=== PATIENT | male | born 1990 | race American Indian/Alaskan Native ===

== ENCOUNTER 2017-05-24 22:20 | Emergency (ER) | payer OTHER ==
[2017-05-24 23:59] LABS: Basophils % (Auto) 0.7 % (0.0-1.8); Eosinophils % (Auto) 3.6 % (0.0-4.3); Hematocrit 44.9 % (35.5-45.6); Mean Corpuscular HGB Conc 34 % (32-34); Mean Corpuscular Hemoglobin 31 pg (28-32); Mean Corpuscular Volume 91 fl (84-94); Platelet Count 210 K/mm3 (140-440); Red Blood Count 4.94 M/mm3 (3.65-5.03); Red Cell Distribution Width 13.6 % (13.2-15.2); White Blood Count 6.1 K/mm3 (4.5-11.0)
[2017-05-25 00:26] LABS: Anion Gap 19 mmol/L; Blood Urea Nitrogen 11 mg/dL (9-20); Calcium 9.5 mg/dL (8.4-10.2); Carbon Dioxide 24 mmol/L (22-30); Chloride 100.7 mmol/L (98-107); Glucose 82 mg/dL (75-100); Potassium 3.5 mmol/L (3.6-5.0); Sodium 140 mmol/L (137-145)
[2017-05-25 01:14] LABS: Bilirubin,Urine NEG (Negative); Blood,Urine NEG (Negative); Ketones,Urine NEG (Negative); Leukocyte Esterase,Urine NEG (Negative); Nitrite,Urine NEG (Negative); Protein,Urine <15 mg/dL mg/dL (Negative); RBC,Urine < 1.0 /HPF (0.0-6.0); Urobilinogen,Urine < 2.0 mg/dL (<2.0)
--- NOTE | 2017-05-25 10:22 | Emergency Department Report ---
ED Chest Pain HPI - General Chief Complaint: Chest Pain Stated Complaint: GENERAL WEAKNESS Time Seen by Provider: 05/25/17 10:20 Source: patient Mode of arrival: Ambulatory Limitations: No Limitations - History of Present Illness Severity scale (0 -10): 10 - Related Data Previous Rx's Medication Instructions Recorded Last Taken Type Diclofenac Sodium 75 mg PO BID #20 tablet. 02/19/16 Unknown Rx Prednisone [predniSONE 10 mg 10 mg PO .TAPER #1 tab.ds.pk 02/19/16 Unknown Rx (6-Day Pack, 21 Tabs)] Allergies Allergy/AdvReac Type Severity Reaction Status Date / Time No Known Allergies Allergy Verified 05/24/17 22:51 ED Review of Systems ROS: Stated complaint: GENERAL WEAKNESS Other details as noted in HPI ED Past Medical Hx - Past Medical History Previous Medical History?: No - Surgical History Past Surgical History?: No - Social History Smoking Status: Never Smoker Substance Use Type: None - Medications Home Medications: Home Medications Medication Instructions Recorded Confirmed Last Taken Type Diclofenac Sodium 75 mg PO BID #20 tablet. 02/19/16 Unknown Rx Prednisone [predniSONE 10 mg 10 mg PO .TAPER #1 tab.ds.pk 02/19/16 Unknown Rx (6-Day Pack, 21 Tabs)] ED Physical Exam - General Limitations: No Limitations ED Course Vital Signs 05/24/17 05/25/17 05/25/17 22:51 01:22 08:01 Temperature 97.8 F 98.8 F Pulse Rate 60 52 L Respiratory 16 18 18 Rate Blood Pressure 130/92 135/86 Blood Pressure [Left] O2 Sat by Pulse 100 100 Oximetry 05/25/17 08:11 Temperature 98.7 F Pulse Rate 50 L Respiratory 18 Rate Blood Pressure Blood Pressure 133/76 [Left] O2 Sat by Pulse 98 Oximetry ED Medical Decision Making - Lab Data Result diagrams: 05/24/17 23:26 05/24/17 23:26 Laboratory Results - last 24 hr 05/24/17 05/24/17 05/24/17 00:36 23:26 23:26 WBC 6.1 RBC 4.94 Hgb 15.0 Hct 44.9 MCV 91 MCH 31 MCHC 34 RDW 13.6 Plt Count 210 Lymph % (Auto) 51.4 H [place] % (Auto) 8.3 H Eos % (Auto) 3.6 Baso % (Auto) 0.7 Lymph # 3.1 [place] # 0.5 Eos # 0.2 Baso # 0.0 Seg Neutrophils % 36.0 L Seg Neutrophils # 2.2 Sodium 140 Potassium 3.5 L Chloride 100.7 Carbon Dioxide 24 Anion Gap 19 BUN 11 Creatinine 1.0 Estimated GFR > 60 BUN/Creatinine Ratio 11.00 Glucose 82 Calcium 9.5 Troponin T < 0.010 Urine Color Yellow Urine Turbidity Clear Urine pH 7.0 Ur Specific [place] 1.014 Urine Protein <15 mg/dl Urine Glucose (UA) Neg Urine Ketones Neg Urine Blood Neg Urine Nitrite Neg Urine Bilirubin Neg Urine Urobilinogen < 2.0 Ur Leukocyte Esterase Neg Urine WBC (Auto) 0.0 Urine RBC (Auto) < 1.0 05/25/17 05/25/17 01:44 04:55 WBC RBC Hgb Hct MCV MCH MCHC RDW Plt Count Lymph % (Auto) [place] % (Auto) Eos % (Auto) Baso % (Auto) Lymph # [place] # Eos # Baso # Seg Neutrophils % Seg Neutrophils # Sodium Potassium Chloride Carbon Dioxide Anion Gap BUN Creatinine Estimated GFR BUN/Creatinine Ratio Glucose Calcium Troponin T < 0.010 < 0.010 Urine Color Urine Turbidity Urine pH Ur Specific [place] Urine Protein Urine Glucose (UA) Urine Ketones Urine Blood Urine Nitrite Urine Bilirubin Urine Urobilinogen Ur Leukocyte Esterase Urine WBC (Auto) Urine RBC (Auto) Critical care attestation.: If time is entered above; I have spent that time in minutes in the direct care of this critically ill patient, excluding procedure time. ED Disposition Condition: Stable Referrals: PRIMARY CARE, [Primary Care Provider] - 3-5 Days
[2017-05-25] MEDS ORDERED: TORADOL IM ONE (11:12)
--- NOTE | 2017-05-25 11:12 | Emergency Department Report ---
ED General Adult HPI - General Chief complaint: Chest Pain Stated complaint: GENERAL WEAKNESS Time Seen by Provider: 05/25/17 10:20 Source: patient Mode of arrival: Ambulatory Limitations: No Limitations - History of Present Illness Initial comments: The patient does not actually complain of chest pain at all. He states that he essentially has allodynia, that is, pain all over. He states he's had this problem for 2 weeks. He states he went to another emergency department and also told him that he was having abdominal pain. A workup at that time was totally normal. He states he has not wanted to see an physician office rep on . He essentially just states he is hurting all over. He does not specify. His muscle or joint pain. He hasn't seen any swollen areas. He hasn't measured his temperature nor suffered from chills. His review of systems is otherwise negative. He is a poor historian. He does admit that he does have problems with chronic pain for at least the last 2 weeks. He's had no recent traveling. -: week(s) Location: upper extremity, lower extremity Quality: aching Consistency: intermittent Improves with: none Worsens with: none Associated Symptoms: denies other symptoms Treatments Prior to Arrival: none - Related Data Previous Rx's Medication Instructions Recorded Last Taken Type Diclofenac Sodium 75 mg PO BID #20 tablet. 02/19/16 Unknown Rx Prednisone [predniSONE 10 mg 10 mg PO .TAPER #1 tab.ds.pk 02/19/16 Unknown Rx (6-Day Pack, 21 Tabs)] traMADol [Ultram] 50 mg PO Q6HR PRN #14 tablet 05/25/17 Unknown Rx Allergies Allergy/AdvReac Type Severity Reaction Status Date / Time No Known Allergies Allergy Verified 05/24/17 22:51 ED Review of Systems ROS: Stated complaint: GENERAL WEAKNESS Other details as noted in HPI Constitutional: denies: chills, fever Eyes: denies: eye pain, eye discharge, vision change ENT: denies: ear pain, throat pain Respiratory: denies: cough, shortness of breath, wheezing Cardiovascular: denies: chest pain, palpitations Endocrine: no symptoms reported Gastrointestinal: denies: abdominal pain, nausea, diarrhea Genitourinary: denies: urgency, dysuria Musculoskeletal: as per HPI Skin: denies: rash, lesions Neurological: denies: headache, weakness, paresthesias Psychiatric: denies: anxiety, depression Hematological/Lymphatic: denies: easy bleeding, easy bruising ED Past Medical Hx - Past Medical History Previous Medical History?: No - Surgical History Past Surgical History?: No - Social History Smoking Status: Never Smoker Substance Use Type: None - Medications Home Medications: Home Medications Medication Instructions Recorded Confirmed Last Taken Type Diclofenac Sodium 75 mg PO BID #20 tablet. 02/19/16 Unknown Rx Prednisone [predniSONE 10 mg 10 mg PO .TAPER #1 tab.ds.pk 02/19/16 Unknown Rx (6-Day Pack, 21 Tabs)] traMADol [Ultram] 50 mg PO Q6HR PRN #14 tablet 05/25/17 Unknown Rx ED Physical Exam - General Limitations: No Limitations ED Course Vital Signs 05/24/17 05/25/17 05/25/17 22:51 01:22 08:01 Temperature 97.8 F 98.8 F Pulse Rate 60 52 L Respiratory 16 18 18 Rate Blood Pressure 130/92 135/86 Blood Pressure [Left] O2 Sat by Pulse 100 100 Oximetry 05/25/17 08:11 Temperature 98.7 F Pulse Rate 50 L Respiratory 18 Rate Blood Pressure Blood Pressure 133/76 [Left] O2 Sat by Pulse 98 Oximetry ED Medical Decision Making - Lab Data Result diagrams: 05/24/17 23:26 05/24/17 23:26 Laboratory Results - last 24 hr 05/24/17 05/24/17 05/24/17 00:36 23:26 23:26 WBC 6.1 RBC 4.94 Hgb 15.0 Hct 44.9 MCV 91 MCH 31 MCHC 34 RDW 13.6 Plt Count 210 Lymph % (Auto) 51.4 H [place] % (Auto) 8.3 H Eos % (Auto) 3.6 Baso % (Auto) 0.7 Lymph # 3.1 [place] # 0.5 Eos # 0.2 Baso # 0.0 Seg Neutrophils % 36.0 L Seg Neutrophils # 2.2 Sodium 140 Potassium 3.5 L Chloride 100.7 Carbon Dioxide 24 Anion Gap 19 BUN 11 Creatinine 1.0 Estimated GFR > 60 BUN/Creatinine Ratio 11.00 Glucose 82 Calcium 9.5 Troponin T < 0.010 Urine Color Yellow Urine Turbidity Clear Urine pH 7.0 Ur Specific [place] 1.014 Urine Protein <15 mg/dl Urine Glucose (UA) Neg Urine Ketones Neg Urine Blood Neg Urine Nitrite Neg Urine Bilirubin Neg Urine Urobilinogen < 2.0 Ur Leukocyte Esterase Neg Urine WBC (Auto) 0.0 Urine RBC (Auto) < 1.0 05/25/17 05/25/17 01:44 04:55 WBC RBC Hgb Hct MCV MCH MCHC RDW Plt Count Lymph % (Auto) [place] % (Auto) Eos % (Auto) Baso % (Auto) Lymph # [place] # Eos # Baso # Seg Neutrophils % Seg Neutrophils # Sodium Potassium Chloride Carbon Dioxide Anion Gap BUN Creatinine Estimated GFR BUN/Creatinine Ratio Glucose Calcium Troponin T < 0.010 < 0.010 Urine Color Urine Turbidity Urine pH Ur Specific [place] Urine Protein Urine Glucose (UA) Urine Ketones Urine Blood Urine Nitrite Urine Bilirubin Urine Urobilinogen Ur Leukocyte Esterase Urine WBC (Auto) Urine RBC (Auto) - EKG Data -: EKG Interpreted by Me EKG shows normal: sinus rhythm, axis, intervals, QRS complexes, ST-T waves Rate: bradycardia - EKG Data Interpretation: normal EKG Critical care attestation.: If time is entered above; I have spent that time in minutes in the direct care of this critically ill patient, excluding procedure time. ED Disposition Clinical Impression: Allodynia Disposition: DC-01 TO HOME OR SELFCARE Is pt being admited?: No Does the pt Need Aspirin: No Condition: Stable Additional Instructions: I would recommend follow-up with the physician office rep as previously recommended. If there is any problem he can also call [facility] for evaluation. Rx given for pain. Prescriptions: traMADol [Ultram] 50 mg PO Q6HR PRN #14 tablet PRN Reason: Pain Referrals: PRIMARY CARE [Primary Care Provider] - 3-5 Days [facility] [Provider Group] - 3-5 Days Time of Disposition: 11:11
[2017-05-25 11:31] VITALS: BP 127/70
== END 2017-05-25 11:45 | disposition home or self-care (01) ==
LOC: ED 22:20
DX: R20.3 Hyperesthesia (principal)
CPT/HCPCS: 36415; 80048; 81001; 84484; 85025; 87086; 93005; 93010; 96372; 99284; J1885

== ENCOUNTER 2018-03-25 23:51 | Emergency (ER) | payer OTHER ==
[2018-03-26] MEDS ORDERED: ASPIRIN PO ONE (01:02)
[2018-03-26 02:04] LABS: Basophils % (Auto) 0.7 % (0.0-1.8); Eosinophils # (Auto) 0.2 K/mm3 (0.0-0.4); Eosinophils % (Auto) 4.2 % (0.0-4.3); Hematocrit 43.9 % (35.5-45.6); Hemoglobin 14.8 gm/dl (11.8-15.2); Lymphocytes # (Auto) 2.3 K/mm3 (1.2-5.4); Lymphocytes % (Auto) 40.6 % (13.4-35.0); Mean Corpuscular HGB Conc 34 % (32-34); Mean Corpuscular Hemoglobin 31 pg (28-32); Mean Corpuscular Volume 91 fl (84-94); Monocytes # (Auto) 0.7 K/mm3 (0.0-0.8); Monocytes % (Auto) 11.8 % (0.0-7.3); Platelet Count 192 K/mm3 (140-440); Red Blood Count 4.81 M/mm3 (3.65-5.03); Red Cell Distribution Width 13.4 % (13.2-15.2)
[2018-03-26 02:19] LABS: BUN/Creatinine Ratio 15; Blood Urea Nitrogen 15 mg/dL (9-20); Calcium 9.4 mg/dL (8.4-10.2); Hemolysis Index 7
[2018-03-26] MEDS ORDERED: TYLENOL PO ONE (03:39)
[2018-03-26] MEDS ORDERED: TORADOL IM ONE (03:39)
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
[2018-03-26 04:24] VITALS: BP 115/69
== END 2018-03-26 05:50 | disposition home or self-care (01) ==
LOC: ED 23:51
DX: R07.89 Other chest pain (principal); V49.49XA Driver injured in collision with other motor vehicles in traffic accident, initial encounter; Y93.89 Activity, other specified; Y92.89 Other specified places as the place of occurrence of the external cause; Y99.8 Other external cause status
CPT/HCPCS: 36415; 71046; 80048; 84484; 85025; 93005; 93010; 96372; 99284; J1885

== ENCOUNTER 2018-04-03 07:18 | Emergency (ER) | payer OTHER ==
[2018-04-03 07:41] VITALS: BP 132/84
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
--- NOTE | 2018-04-03 08:50 | XRay Report ---
LUMBOSACRAL SPINE, 3 VIEWS: History: Low back pain Findings: There is suggestion of minimal dextrocurvature to the lumbar spine on the AP image. There is normal height and alignment of the lumbar vertebra otherwise. No evidence for compression deformity, subluxation or bone lesion. No significant degenerative changes. Impression: Minimal dextroscoliosis of the lumbar spine. No acute process.
== END 2018-04-03 10:17 | disposition home or self-care (01) ==
LOC: ED 07:18
DX: S39.012D Strain of muscle, fascia and tendon of lower back, subsequent encounter (principal); V89.2XXD Person injured in unspecified motor-vehicle accident, traffic, subsequent encounter
CPT/HCPCS: 72100; 93005; 93010; 99283